=== PATIENT | female | born 1965 | race Caucasian/White ===

== ENCOUNTER → 2024-05-15 14:57 | Outpatient (REF) | payer BC, SELFPAY | LOC: HWWDC 14:57 | PROVIDERS: ATTENDING PHYSICIAN Physician Assistant Medical | DX: Z12.31 Encounter for screening mammogram for malignant neoplasm of breast (principal) | CPT/HCPCS: 77063; 77067 ==

== ENCOUNTER → 2025-06-17 13:12 | Outpatient (REF) | payer BC, SELFPAY | LOC: HWWDC 13:12 | PROVIDERS: ATTENDING PHYSICIAN Physician Assistant Medical | DX: Z12.31 Encounter for screening mammogram for malignant neoplasm of breast (principal) | CPT/HCPCS: 77063; 77067 ==

== ENCOUNTER 2025-06-18 06:20 | Day surgery (SDC) | payer BC, SELFPAY | END 2025-06-18 13:11 | disposition home or self-care (01) | LOC: GI 06:20 | PROVIDERS: ATTENDING PHYSICIAN Internal Medicine Gastroenterology | DX: Z12.11 Encounter for screening for malignant neoplasm of colon (principal); R19.5 Other fecal abnormalities; K57.30 Diverticulosis of large intestine without perforation or abscess without bleeding; K64.9 Unspecified hemorrhoids; K62.89 Other specified diseases of anus and rectum; D12.5 Benign neoplasm of sigmoid colon; D12.0 Benign neoplasm of cecum | CPT/HCPCS: 45385; 88305 ==